=== PATIENT | male | born 1950 | race Caucasian/White ===

== ENCOUNTER 2016-07-17 20:55 | Emergency (ER) | payer OTHER ==
[~2016-07-17] VITALS: Ht 172.7 cm; Wt 95.0 kg
[2016-07-17 21:07] VITALS: BP 137/69; PULSE 59; RESP 20; O2SAT 99
--- NOTE | 2016-07-17 21:20 | PD ---
HPI . Hypoglycemia Chief Complaint: Diabetic Time Seen by Provider: 21:06 Travel History International Travel<30 days: No Contact w/Intl Traveler<30days: No Traveled to known affect area: No History of Present Illness HPI Patient presents to us via [facility] for hypoglycemia. This was treated prior to arrival with chocolate. The patient is now awake and alert. Patient states that he was at an outside hospital today with an eye problem. He was diagnosed with a detached retina. Arrangements were made for him to be seen by a retina specialist here in [facility]. He is a diabetic and had not had anything to eat since lunchtime. He states that he became diaphoretic and had a decreased level of consciousness while sitting with a retina specialist. EMS was called and he was given some chocolate which was all that they had on hand. He is feeling better. Symptoms were brought on by lack of supple and were resolved by food. PFSH Past Medical History Cardiovascular Problems: Yes Diabetes: Yes Social History Tobacco Use: No Allergies-Medications (Allergen,Severity, Reaction): Coded Allergies: Demerol (Verified Allergy, Severe, Psychosis, 07/17/16) Penicillin (Verified Allergy, Severe, Anaphylaxis, 07/17/16) Sulfa (Verified Allergy, Intermediate, Hives, 07/17/16) Review of Systems Except as stated in HPI: all other systems reviewed are Neg General / Constitutional: Positive: Other (diaphoresis) Neurologic: Positive: Change in Mentation Physical Exam Narrative GENERAL: Awake and alert and in no acute distress. SKIN: Warm and dry. HEAD: Atraumatic. Normocephalic. EYES: Pupils equal and round. NECK: Trachea midline. CARDIOVASCULAR: Regular rate and rhythm. RESPIRATORY: No accessory muscle use. MUSCULOSKELETAL: No obvious deformities. No edema. NEUROLOGICAL: Awake and alert. No obvious cranial nerve deficits. Motor grossly within normal limits. Normal speech. PSYCHIATRIC: Appropriate mood and affect; insight and judgment normal. Data Data Last Documented VS Vital Signs Date Time Temp Pulse Resp B/P Pulse Ox O2 Delivery O2 Flow Rate FiO2 07/17/16 21:25 Room Air 07/17/16 21:07 59 20 137/69 99 Orders Diet As Tolerated (07/17/16 21:14) MDM Medical Decision Making Medical Screen Exam Complete: Yes Emergency Medical Condition: Yes Differential Diagnosis Differential diagnosis of altered mental status includes but is not limited to infection, electrolyte abnormality, neurological event, intoxication Narrative Course Patient presents to us with altered mental status secondary to hypoglycemia. The hypoglycemia has been adequately treated prior to arrival. The patient will be given a meal and his sugar will be monitored. Fingerstick blood sugar following a dinner tray is 116. The patient will be discharged. Diagnosis Primary Impression: Hypoglycemia Patient Instructions: General Instructions, Hypoglycemia in a Person with Diabetes (GEN) Disposition: 01 DISCHARGE HOME Condition: Stable Radha Graham MD Jul 17, 2016 21:20
== END 2016-07-17 22:43 | disposition home or self-care (01) ==
LOC: NEPC 20:55
DX: E11.649 Type 2 diabetes mellitus with hypoglycemia without coma (principal); R41.82 Altered mental status, unspecified; Z86.79 Personal history of other diseases of the circulatory system
CPT/HCPCS: 99283